=== PATIENT | female | born 1960 | race Caucasian/White ===

== ENCOUNTER → 2016-10-06 | Emergency (ER) | payer OTHER ==
[~2016-10-06] MED LIST: Aspirin Low Dose CHEW TAB* 81 MG PO ONE
--- NOTE | 2016-10-06 17:05 | ED ---
HPI Chest Pain - HPI Summary HPI Summary: Patient presents to ED with CC of chest discomfort which radiates to the arms and neck bilaterally x 3 days. She notes to some intermittent numbness and tingling The discomfort began while shoveling snow 3 days ago. During that time she felt a tightness across the chest and slight discomfort in the L arm. The next day she began to experience chest pain again with a burning sensation radiating from the arms up the sides of the neck bilaterally. PMHx history of anxiety and HTN with a previous stay 2 years ago for similar complaint. At that time she stayed 3 nights in the hospital and was noted to have a pinched nerve in her cervical or thoracic vertebrae which was causing the numbness and tingling sensation in the arms. Denies AVILES, leg pain or swelling. Takes aspirin 81mg and zestoretic daily. Did not take her aspirin this AM. Last change of chest pain occurred last night. Patient states she has been going through menopause for several years, but had denied any hot flashes. Denies SOB. - History of Current Complaint Chief Complaint: EDChestPainROMI Time Seen by Provider: 10/06/16 16:28 Hx Obtained From: Patient Onset/Duration: Started Days Ago - 3 days ago Timing: Intermittent, Lasting Minutes Initial Severity: Moderate Current Severity: Moderate Pain Intensity: 4 Pain Scale Used: 0-10 Numeric Chest Pain Location: Diffuse - across chest wall, Mid Sternal - pain in midsternum occurred once and has now dissipated Chest Pain Radiates To:: Arm - bilaterally, Neck - bilaterally Character: Burning - neck - bilaterally, Dull/Aching, Exertion - while shoverling Aggravating Factor(s): Exertion Associated Signs and Symptoms: Positive: Chest Pain - epigastric and diffuse chest wall, Numbness - left leg and arms bilaterally, Tingling, Weakness - legs , Dizziness - 1 episode this morning, Lightheadedness - Risk Factors Pulmonary Embolism Risk Factors: Negative TAD Risk Factors: Negative - Allergy/Home Medications Allergies/Adverse Reactions: Allergies Allergy/AdvReac Type Severity Reaction Status Date / Time No Known Allergies Allergy Verified 04/11/16 09:31 PMH/Surg Hx/FS Hx/Imm Hx Previously Healthy: Yes Cardiovascular History: Reports: Hx Hypertension Denies: Hx Pacemaker/ICD GI History: Reports: Hx Gall Bladder Disease Musculoskeletal History: Reports: Hx Back Problems Sensory History: Denies: Hx Hearing Aid Neurological History: Reports: Hx Headaches Psychiatric History: Denies: Hx Panic Disorder - Cancer History Hx Chemotherapy: No Hx Radiation Therapy: No - Immunization History Date of Tetanus Vaccine: PT STATES UNSURE Date of Influenza Vaccine: NONE Infectious Disease History: No Infectious Disease History: Denies: Traveled Outside the [place] in Last 30 Days - Social History Occupation: Employed Full-time Lives: With Family Alcohol Use: Rare Substance Use Type: Reports: None Smoking Status (MU): Never Smoked Tobacco Review of Systems Constitutional: Negative Positive: Fatigue Eyes: Negative ENT: Negative Positive: Chest Pain - diffuse across chest wall radiating to arms and neck Respiratory: Negative Gastrointestinal: Negative Musculoskeletal: Negative Skin: Negative Neurological: Negative Positive: Anxious All Other Systems Reviewed And Are Negative: Yes Physical Exam Triage Information Reviewed: Yes Vital Signs On Initial Exam: Initial Vitals Temp Pulse Resp BP Pulse Ox 97.6 F 103 20 174/117 100 10/06/16 16:13 10/06/16 16:13 10/06/16 16:13 10/06/16 16:13 10/06/16 16:13 Vital Signs Reviewed: Yes Appearance: Positive: Well-Appearing, No Pain Distress, Well-Nourished Skin: Positive: Warm, Skin Color Reflects Adequate Perfusion Head/Face: Positive: Normal Head/Face Inspection, Temporal Artery Tenderness Eyes: Positive: Normal, EOMI, WILI ENT: Positive: Normal ENT inspection Neck: Positive: Supple, Nontender, No Lymphadenopathy Respiratory/Lung Sounds: Positive: Clear to Auscultation, Breath Sounds Present Cardiovascular: Positive: Normal, RRR, Pulses are Symmetrical in both Upper and Lower Extremities Musculoskeletal: Positive: Normal, Strength/ROM Intact Neurological: Positive: Normal Psychiatric: Positive: Normal AVPU Assessment: Alert Diagnostics - Vital Signs Vital Signs Temp Pulse Resp BP Pulse Ox 10/06/16 16:13 97.6 F 103 20 174/117 100 - Laboratory Result Diagrams: 10/06/16 17:00 10/06/16 17:00 Lab Statement: Any lab studies that have been ordered have been reviewed, and results considered in the medical decision making process. - Radiology No standard instances Xray Interpretation: No Acute Changes Radiology Interpretation Completed By: Radiologist - EKG No standard instances EKG Comparison: No Significant Change Chest Pain Course/Dx - Course Course Of Treatment: Complete cardiac workup. EKG WNL. Trops negative. no pain and feeling better.patient to be DC'd home with encouragement to follow up with stress test. Patient agrees with discharge plan. - Diagnoses Provider Diagnoses: Chest wall pain, Anxiety Discharge - Discharge Plan Condition: Stable Disposition: HOME Patient Education Materials: Chest Wall Pain (ED), Anxiety (ED) Referrals: Kyree Meza MD [Primary Care Provider] - Additional Instructions: May take ibuprofen 400mg three times daily for any discomfort. Heating pads to the area for discomfort and promote blood flow. If symptoms worsen or fail to improve, come back to ED for further evaluation.
[2016-10-06 17:08] LABS: Hematocrit 45 % (35-47); Hemoglobin 15.4 g/dl (12.0-16.0); Mean Corpuscular HGB Conc 34 g/dl (31-36); Mean Corpuscular Hemoglobin 30 pg (27-31); Mean Corpuscular Volume 87 fL (80-97); Mean Platelet Volume 8 um3 (7.4-10.4); Red Blood Count 5.17 10^6/ul (4.0-5.4); Red Cell Distribution Width 12 % (10.5-15); White Blood Count 7.1 10^3/ul (3.5-10.8)
[2016-10-06 17:23] LABS: Albumin 4.5 g/dL (3.2-5.2); BUN/Creatinine Ratio 17.4 (8-20); Calcium 9.9 mg/dL (8.6-10.3); EGFR African American 112.8 (>60); EGFR Non-African American 87.7 (>60); Globulin 3.3 g/dL (2-4); Potassium 3.7 mmol/L (3.5-5.0); Total Bilirubin 1.3 mg/dL (0.2-1.0); Total Protein 7.8 g/dL (6.4-8.9)
[2016-10-06 17:24] LABS: Troponin I 0.01 ng/mL (<0.04)
--- NOTE | 2016-10-06 17:24 | RAD ---
INDICATION: Chest pain COMPARISON: November 02, 2014 TECHNIQUE: An AP portable view obtained at 1715 hours is submitted. FINDINGS: Bones/Soft Tissues: There are no acute bony findings. Cardiomediastinal: The cardiomediastinal silhouette is normal. Lungs: There are no infiltrates. Pleura: There are no pleural effusions. Other: None IMPRESSION: NO ACTIVE DISEASE.
[2016-10-06 18:00] LABS: TSH (Thyroid Stimulating Horm) 0.46 mcIU/mL (0.34-5.60)
[2016-10-06 19:18] VITALS: BP 132/82
== END | disposition home or self-care (01) ==
LOC: ED 16:10
DX: R07.89 Other chest pain (principal); Z86.79 Personal history of other diseases of the circulatory system; F41.9 Anxiety disorder, unspecified
CPT/HCPCS: 36415; 71010; 80053; 82550; 83605; 84443; 84484; 85025; 85610; 93005; 99282; A9270-GY